=== PATIENT | male | born 1955 | race Caucasian/White ===

== ENCOUNTER 2021-04-12 07:05 | Outpatient (CLI) | payer MEDICARE ==
[~2021-04-12] VITALS: Ht 172.7 cm; Wt 68.1 kg
[~2021-04-12 07:05] MED LIST: INFL100V IV
[2021-04-12] MEDS ORDERED: LORA10TA3 PO (07:46)
[2021-04-12] MEDS ORDERED: ALPR1TAB6 PO (07:46)
[2021-04-12] MEDS ORDERED: LEFL10TA13 PO (07:46)
[2021-04-12] MEDS ORDERED: TRAM50TA PO (07:46)
[2021-04-12] MEDS ORDERED: TAMS0.4C97 PO (07:46)
[2021-04-12 07:52] VITALS: BP 103/50
[2021-04-12 07:55] LABS: BASO # 0.1 x10^3/uL (0.0-0.2); BASO % 1 % (0-3); EOS # 0.4 x10^3/uL (0.0-0.7); EOS % 6 % (0-3); HEMATOCRIT 37.9 % (39.0-53.0); HEMOGLOBIN 12.6 g/dL (13.0-17.5); LYMPH % 56 % (24-48); MEAN CORPUSCULAR HEMOGLOBIN 31 pg (25-35); MEAN CORPUSCULAR HGB CONC 33 g/dL (31-37); MEAN CORPUSCULAR VOLUME 94 fL (79-100); MONO # 0.3 x10^3/uL (0.0-1.1); MONO % 4 % (0-9); NEUT # 2.4 x10^3/uL (1.8-7.7); NEUT % 33 % (31-73); PLATELET COUNT 218 x10^3/uL (140-400); RED BLOOD COUNT 4.01 x10^6/uL (4.30-5.70); RED CELL DISTRIBUTION WIDTH 14.4 % (11.5-14.5); WHITE BLOOD COUNT 7.1 x10^3/uL (4.0-11.0)
[2021-04-12 08:03] LABS: CREATININE 0.9 mg/dL (0.7-1.3); GFR 84.4; POTASSIUM 3.9 mmol/L (3.5-5.1)
[2021-04-12 08:04] LABS: PROTHROMBIN TIME PATIENT 11.7 SEC (11.7-14.0)
[2021-04-12] MEDS ORDERED: LIDOCAINE WITH 8.4% SOD BICARB 3 ML DISP.SYRIN. ONE (08:22)
[2021-04-12] MEDS ORDERED: fentaNYL PF VIAL 100 MCG/2 ML VIAL ONE (08:51)
[2021-04-12] MEDS ORDERED: MIDAZOLAM HCL/PF 2 MG/2 ML VIAL. ONE (08:51)
[2021-04-12 09:02] VITALS: BP 108/42
[2021-04-12 09:12] VITALS: BP 111/47
[2021-04-12] MEDS ORDERED: LIDOCAINE WITH 8.4% SOD BICARB 3 ML DISP.SYRIN. IJ ONE (09:15)
[2021-04-12 09:27] VITALS: BP 114/51
[2021-04-12 09:43] VITALS: BP 100/44
[2021-04-12 09:58] VITALS: BP 109/54
--- NOTE | 2021-04-12 10:40 | NUR ---
pt discharged to home with family. VIRGIL dyson.
--- NOTE | 2021-04-12 15:26 | RAD ---
Site ID: [id number] EXAMINATION: Ultrasound Guidance (CPT 77978) Biopsy-right axilla. (CPT 98675) INDICATION: Right axillary lymphadenopathy. SEDATION: Not performed Current history and physical and other medical records are reviewed prior to the procedure. CONSENT: Informed consent was obtained. The risks, benefits, potential complications and alternatives were reviewed and all questions answered. PROCEDURE: After maximal sterile barrier technique preparation and draping, 1% lidocaine was utilized for local anesthesia. With the patient in supine position, and via right axilla approach, a 17-gauge guide needle is introd uced into the right axillary enlarged lymph nodes under ultrasound scan guidance. After confirming ad equate positioning with saved ultrasound images, multiple 18 gauge core biopsy specimens were obtaine d. The patient tolerated the procedure well with no immediate complications. FINDINGS: Enlarged right axillary lymph nodes. IMPRESSION: Successful ultrasound guided biopsy of right axillary lymph nodes. Electronically signed by: Lc Ratliff MD (04/12/2021 3:23 PM) [id number]
--- NOTE | 2021-04-12 15:26 | RAD ---
Site ID: [id number] EXAMINATION: Ultrasound Guidance (CPT 89324) Biopsy-right axilla. (CPT 33948) INDICATION: Right axillary lymphadenopathy. SEDATION: Not performed Current history and physical and other medical records are reviewed prior to the procedure. CONSENT: Informed consent was obtained. The risks, benefits, potential complications and alternatives were reviewed and all questions answered. PROCEDURE: After maximal sterile barrier technique preparation and draping, 1% lidocaine was utilized for local anesthesia. With the patient in supine position, and via right axilla approach, a 17-gauge guide needle is introd uced into the right axillary enlarged lymph nodes under ultrasound scan guidance. After confirming ad equate positioning with saved ultrasound images, multiple 18 gauge core biopsy specimens were obtaine d. The patient tolerated the procedure well with no immediate complications. FINDINGS: Enlarged right axillary lymph nodes. IMPRESSION: Successful ultrasound guided biopsy of right axillary lymph nodes. Electronically signed by: Lc Ratliff MD (04/12/2021 3:23 PM) [id number]
== END 2021-04-12 10:41 | disposition home or self-care (01) ==
LOC: INTRAD 07:05
PROVIDERS: ATTEND Nurse Practitioner Family
DX: R59.0 Localized enlarged lymph nodes (principal); M06.9 Rheumatoid arthritis, unspecified; F17.210 Nicotine dependence, cigarettes, uncomplicated; Z79.899 Other long term (current) drug therapy; Z98.890 Other specified postprocedural states; Z88.5 Allergy status to narcotic agent
CPT/HCPCS: 36415; 38505; 76942; 80048; 85025; 85610; 87426; 88184; 88185; J3490

== ENCOUNTER → 2021-05-08 | Outpatient (CLI) | payer MEDICARE ==
[2021-04-12 09:58] VITALS: BP 109/54
[~2021-05-08] MED LIST changes: +ALPR1TAB6 PO; +LEFL10TA13 PO; +LORA10TA3 PO; +TAMS0.4C97 PO; +TRAM50TA PO
[2021-05-08 15:22] LABS: BASO % 1 % (0-3); EOS # 0.5 x10^3/uL (0.0-0.7); EOS % 7 % (0-3); HEMATOCRIT 37.7 % (39.0-53.0); HEMOGLOBIN 12.9 g/dL (13.0-17.5); LYMPH % 60 % (24-48); MEAN CORPUSCULAR HEMOGLOBIN 32 pg (25-35); MEAN CORPUSCULAR HGB CONC 34 g/dL (31-37); MEAN CORPUSCULAR VOLUME 94 fL (79-100); MONO # 0.3 x10^3/uL (0.0-1.1); MONO % 4 % (0-9); NEUT # 1.9 x10^3/uL (1.8-7.7); NEUT % 28 % (31-73); PLATELET COUNT 203 x10^3/uL (140-400); RED BLOOD COUNT 4.01 x10^6/uL (4.30-5.70); RED CELL DISTRIBUTION WIDTH 14.3 % (11.5-14.5); WHITE BLOOD COUNT 6.7 x10^3/uL (4.0-11.0)
== END ==
LOC: ONCLAB 14:44
PROVIDERS: ATTEND Internal Medicine Hematology & Oncology
DX: C83.04 Small cell B-cell lymphoma, lymph nodes of axilla and upper limb (principal)
CPT/HCPCS: 85025

== ENCOUNTER → 2021-07-13 | Outpatient (CLI) | payer BC, MEDICARE ==
[2021-07-13 14:40] LABS: BASO # 0.1 x10^3/uL (0.0-0.2); BASO % 1 % (0-3); EOS # 0.6 x10^3/uL (0.0-0.7); EOS % 9 % (0-3); HEMATOCRIT 39.4 % (39.0-53.0); HEMOGLOBIN 13.5 g/dL (13.0-17.5); LYMPH # 4.2 x10^3/uL (1.0-4.8); LYMPH % 65 % (24-48); MEAN CORPUSCULAR HEMOGLOBIN 33 pg (25-35); MEAN CORPUSCULAR HGB CONC 34 g/dL (31-37); MEAN CORPUSCULAR VOLUME 96 fL (79-100); MONO # 0.2 x10^3/uL (0.0-1.1); MONO % 3 % (0-9); NEUT # 1.5 x10^3/uL (1.8-7.7); NEUT % 22 % (31-73); PLATELET COUNT 222 x10^3/uL (140-400); RED BLOOD COUNT 4.11 x10^6/uL (4.30-5.70); RED CELL DISTRIBUTION WIDTH 14.5 % (11.5-14.5); WHITE BLOOD COUNT 6.5 x10^3/uL (4.0-11.0)
[2021-07-13 14:58] LABS: CALCIUM 8.3 mg/dL (8.5-10.1); GFR 74.8; POTASSIUM 4.7 mmol/L (3.5-5.1)
[2021-07-13 15:02] LABS: ALBUMIN 3.3 g/dL (3.4-5.0); TOTAL BILIRUBIN 0.4 mg/dL (0.2-1.0); TOTAL PROTEIN 6.5 g/dL (6.4-8.2)
[2021-07-13 15:14] LABS: % BASOS 2 % (0-3); % EOS 9 % (0-5); % LYMPHS 63 % (24-48); % MONOS 1 % (0-10); % SEGS 25 % (35-66); PLT ESTIMATE ADEQUATE (ADEQUATE)
== END ==
LOC: ONCLAB 14:20
PROVIDERS: ATTEND Physician Assistant
DX: C83.04 Small cell B-cell lymphoma, lymph nodes of axilla and upper limb (principal)
CPT/HCPCS: 36415; 80053; 82378; 83615; 83735; 84550; 85007; 85025

== ENCOUNTER → 2021-08-02 | Outpatient (CLI) | payer MEDICARE, BC ==
[~2021-08-02] MED LIST changes: +IOHEXOL 240 MG/ML 50ML VIAL. PO ONE; +IOHEXOL 300 MG/ML 100ML VIAL. IV ONE
--- NOTE | 2021-08-02 15:31 | RAD ---
Examination: CT neck, chest abdomen and pelvis with IV contrast. HISTORY: History of lymphoma COMPARISON: None available TECHNIQUE: Axial CT images of the neck, chest, abdomen pelvis with IV contrast. Coronal and sagittal reformats are performed Exposure: One or more of the following individualized dose reduction techniques were utilized for thi s examination: 1. Automated exposure control 2. Adjustment of the mA and/or kV according to patient size 3. Use of iterative reconstruction technique FINDINGS: The visualized intracranial portion grossly appears unremarkable. Numerous enlarged bilateral cervica l lymph nodes with the largest measuring 2 cm in the right, multiple bilateral supraclavicular, multi ple bilateral axillary lymph nodes measuring 4 cm in the right , multiple enlarged retroperitoneal, p ortacaval lymph node ,mildly enlarged bilateral pelvic lymph nodes. Moderate bilateral lung emphysematous changes. Small hiatal hernia. The liver, spleen, adrenals gross ly appears unremarkable. The small bowel is nondilated. Feces and gas noted in the colon. Mild degene rative changes cervical, thoracic and lumbar spine. IMPRESSION: 1. Numerous enlarged bilateral cervical, bilateral supraclavicular, bilateral axillary, retroperiton eal, portacaval lymph nodes, mildly enlarged bilateral pelvic lymph nodes likely known lymphoma. Cons ider PET/CT scan. 2. Moderate bilateral lung emphysematous changes. Electronically signed by: Brayan Elizabeth MD (08/02/2021 3:29 PM) [id number]
== END ==
LOC: CT 10:59
PROVIDERS: ATTEND Physician Assistant
DX: C83.04 Small cell B-cell lymphoma, lymph nodes of axilla and upper limb (principal); J43.9 Emphysema, unspecified; K44.9 Diaphragmatic hernia without obstruction or gangrene; M47.812 Spondylosis without myelopathy or radiculopathy, cervical region; M47.814 Spondylosis without myelopathy or radiculopathy, thoracic region; M47.816 Spondylosis without myelopathy or radiculopathy, lumbar region
CPT/HCPCS: 70491; 71260; 74177; Q9966; Q9967

== ENCOUNTER → 2021-11-07 | Outpatient (CLI) | payer MEDICARE, BC ==
[~2021-11-07] MED LIST changes: -IOHEXOL 240 MG/ML 50ML VIAL. PO ONE; -IOHEXOL 300 MG/ML 100ML VIAL. IV ONE
[2021-11-07 15:19] LABS: BASO # 0.1 x10^3/uL (0.0-0.2); BASO % 1 % (0-3); EOS # 0.6 x10^3/uL (0.0-0.7); EOS % 10 % (0-3); HEMOGLOBIN 13.7 g/dL (13.0-17.5); LYMPH % 37 % (24-48); MEAN CORPUSCULAR HEMOGLOBIN 33 pg (25-35); MEAN CORPUSCULAR HGB CONC 34 g/dL (31-37); MEAN CORPUSCULAR VOLUME 95 fL (79-100); MONO # 0.3 x10^3/uL (0.0-1.1); MONO % 5 % (0-9); NEUT # 2.5 x10^3/uL (1.8-7.7); NEUT % 46 % (31-73); PLATELET COUNT 220 x10^3/uL (140-400); RED CELL DISTRIBUTION WIDTH 13.7 % (11.5-14.5); WHITE BLOOD COUNT 5.5 x10^3/uL (4.0-11.0)
[2021-11-07 15:32] LABS: CREATININE 0.9 mg/dL (0.7-1.3); GFR 84.2; POTASSIUM 4.1 mmol/L (3.5-5.1)
[2021-11-07 15:46] LABS: ALBUMIN 3.3 g/dL (3.4-5.0); ALBUMIN/GLOBULIN RATIO 0.9 (1.0-1.7); MAGNESIUM 2.2 mg/dL (1.8-2.4); TOTAL BILIRUBIN 0.5 mg/dL (0.2-1.0)
== END ==
LOC: ONCLAB 15:01
PROVIDERS: ATTEND Internal Medicine Hematology & Oncology
DX: C83.04 Small cell B-cell lymphoma, lymph nodes of axilla and upper limb (principal)
CPT/HCPCS: 36415; 80053; 83615; 83735; 85025

== ENCOUNTER → 2022-01-08 | Outpatient (CLI) | payer MEDICARE, BC ==
[2022-01-08 13:18] LABS: CALCIUM 8.2 mg/dL (8.5-10.1); CREATININE 0.9 mg/dL (0.7-1.3); GFR 84.2; POTASSIUM 4.6 mmol/L (3.5-5.1)
[2022-01-08 13:22] LABS: BASO # 0.1 x10^3/uL (0.0-0.2); BASO % 1 % (0-3); EOS # 0.4 x10^3/uL (0.0-0.7); EOS % 7 % (0-3); HEMATOCRIT 39.4 % (39.0-53.0); HEMOGLOBIN 12.8 g/dL (13.0-17.5); LYMPH # 2.6 x10^3/uL (1.0-4.8); LYMPH % 44 % (24-48); MEAN CORPUSCULAR HEMOGLOBIN 31 pg (25-35); MEAN CORPUSCULAR HGB CONC 33 g/dL (31-37); MEAN CORPUSCULAR VOLUME 93 fL (79-100); MONO # 0.4 x10^3/uL (0.0-1.1); MONO % 7 % (0-9); NEUT # 2.5 x10^3/uL (1.8-7.7); NEUT % 41 % (31-73); PLATELET COUNT 267 x10^3/uL (140-400); RED BLOOD COUNT 4.21 x10^6/uL (4.30-5.70); RED CELL DISTRIBUTION WIDTH 14.2 % (11.5-14.5); WHITE BLOOD COUNT 6.1 x10^3/uL (4.0-11.0)
[2022-01-08 13:24] LABS: ALBUMIN 3.3 g/dL (3.4-5.0); ALBUMIN/GLOBULIN RATIO 0.9 (1.0-1.7); TOTAL BILIRUBIN 0.4 mg/dL (0.2-1.0)
== END ==
LOC: ONCLAB 12:54
PROVIDERS: ATTEND Internal Medicine Hematology & Oncology
DX: C83.04 Small cell B-cell lymphoma, lymph nodes of axilla and upper limb (principal)
CPT/HCPCS: 36415; 80053; 85025

== ENCOUNTER → 2022-02-13 | Outpatient (CLI) | payer MEDICARE, BC ==
--- NOTE | 2022-02-13 19:09 | CARD ---
MR#: [id number] Date of Study: 02/13/2022 Ordering Physician: PRASHANT CHAN, Referring Physician: PRASHANT CHAN, Tech: Ana Parker [facility] APPROVED REPORT EXAM: Two-dimensional and M-mode echocardiogram with Doppler and color Doppler. Other Information Quality : AverageHR: 76bpm Rhythm : NSR INDICATION RISK FACTORS Hypertension Smoking 2D DIMENSIONS RVDd4.3 (2.9-3.5cm)Left Atrium(2D)3.3 (1.6-4.0cm) IVSd1.1 (0.7-1.1cm)Aortic Root(2D)3.0 (2.0-3.7cm) LVDd4.6 (3.9-5.9cm)LVOT Diameter1.9 (1.8-2.4cm) PWd0.9 (0.7-1.1cm)LVDs3.3 (2.5-4.0cm) FS (%) 29.0 %SV54.9 ml Aortic Valve AoV Peak Mesfin.144.4cm/sAoV VTI30.4cm AO Peak GR.8.3mmHgLVOT Peak Mesfin.112.6cm/s AO Mean GR.3mmHgAVA (VMAX)2.28cm2 Mitral Valve MV E Wujbejlh34.5cm/sMV DECEL TQEC092rr MV A Umchbtoc56.8cm/sE/A Ratio1.1 Pulmonary Valve PV Peak Esrsfpgb723.0cm/s Tricuspid Valve TR P. Giobvucw613iy/sTR Peak Gr.29mmHg LEFT VENTRICLE The Left Ventricle is borderline dilated. There is normal left ventricular wall thickness. The left v entricular systolic function is mild to moderately decreased. LV ejection fraction is 35 to 40%. The re is global hypokinesis of the left ventricle. The left ventricular diastolic function and filling i s normal for age. RIGHT VENTRICLE The right ventricle is normal size. There is normal right ventricular wall thickness. The right ventr icular systolic function is normal. ATRIA The left atrium size is normal. The right atrium size is normal. The interatrial septum is intact wit h no evidence for an atrial septal defect or patent foramen ovale as noted on 2-D or Doppler imaging. AORTIC VALVE The aortic valve is normal in structure and function. Doppler and Color Flow revealed no significant aortic regurgitation. There is no significant aortic valvular stenosis. MITRAL VALVE The mitral valve is normal in structure and function. There is no evidence of mitral valve prolapse. There is no mitral valve stenosis. Doppler and Color-flow revealed mild mitral regurgitation. TRICUSPID VALVE The tricuspid valve is normal in structure and function. Doppler and Color Flow revealed mild tricusp id regurgitation. Estimated PAP 35 mmHg. There is no tricuspid valve stenosis. PULMONIC VALVE The pulmonary valve is normal in structure and function. Doppler and Color Flow revealed no pulmonic valvular regurgitation. GREAT VESSELS The aortic root is normal in size. The ascending aorta is normal in size. The IVC is normal in size a nd collapses >50% with inspiration. PERICARDIAL EFFUSION There is no evidence of significant pericardial effusion. Critical Notification Critical Value: No <Conclusion> The Left Ventricle is borderline dilated. The left ventricular systolic function is mild to moderately decreased. LV ejection fraction is 35 to 40%. There is global hypokinesis of the left ventricle. Doppler and Color Flow revealed no significant aortic regurgitation. There is no significant aortic valvular stenosis. Doppler and Color-flow revealed mild mitral regurgitation. Doppler and Color Flow revealed mild tricuspid regurgitation. Estimated PAP 35 mmHg. Signed by : Prashant Chan MD Electronically Approved : 02/13/2022 19:08:58
== END ==
LOC: ECHO 13:00
PROVIDERS: ATTEND Internal Medicine Cardiovascular Disease
DX: Z01.818 Encounter for other preprocedural examination (principal); I08.1 Rheumatic disorders of both mitral and tricuspid valves
CPT/HCPCS: 93306; C8929

== ENCOUNTER → 2022-04-09 | Outpatient (CLI) | payer MEDICARE, BC ==
[2022-04-09 16:31] LABS: BASO # 0.1 x10^3/uL (0.0-0.2); BASO % 1 % (0-3); EOS # 0.2 x10^3/uL (0.0-0.7); EOS % 4 % (0-3); HEMATOCRIT 33.1 % (39.0-53.0); HEMOGLOBIN 11.1 g/dL (13.0-17.5); LYMPH # 2.2 x10^3/uL (1.0-4.8); LYMPH % 42 % (24-48); MEAN CORPUSCULAR HEMOGLOBIN 31 pg (25-35); MEAN CORPUSCULAR HGB CONC 34 g/dL (31-37); MEAN CORPUSCULAR VOLUME 91 fL (79-100); MONO # 0.2 x10^3/uL (0.0-1.1); MONO % 5 % (0-9); NEUT # 2.5 x10^3/uL (1.8-7.7); NEUT % 49 % (31-73); PLATELET COUNT 332 x10^3/uL (140-400); RED BLOOD COUNT 3.63 x10^6/uL (4.30-5.70); RED CELL DISTRIBUTION WIDTH 13.9 % (11.5-14.5); WHITE BLOOD COUNT 5.1 x10^3/uL (4.0-11.0)
[2022-04-09 17:01] LABS: CALCIUM 8.8 mg/dL (8.5-10.1); GFR 74.5; POTASSIUM 4.4 mmol/L (3.5-5.1)
[2022-04-09 17:15] LABS: ALBUMIN 3.4 g/dL (3.4-5.0); TOTAL BILIRUBIN 0.5 mg/dL (0.2-1.0); TOTAL PROTEIN 6.9 g/dL (6.4-8.2)
== END ==
LOC: ONCLAB 15:07
PROVIDERS: ATTEND Internal Medicine Hematology & Oncology
DX: C83.04 Small cell B-cell lymphoma, lymph nodes of axilla and upper limb (principal)
CPT/HCPCS: 36415; 80053; 85025